=== PATIENT | male | born 1995 ===

== ENCOUNTER → 2021-07-16 | Emergency (ER) | payer SELFPAY ==
[~2021-07-16] VITALS: Ht 172.7 cm; Wt 74.8 kg
[~2021-07-16] MED LIST: HYDROcodone-ACET 5/325MG TAB PO PRN; HYDROcodone-ACET 5/325MG TAB PO SCH; HYDROmorphone HCL 2 MG/ML VL IV ONE; LACTATED RINGER'S 1,000 ML IV ONE; MORPHINE SULFATE INJECTION 2 MG/ML SYRG IV PRN; ONDANSETRON HCL 4 MG/2 ML VIAL IM ONE; ONDANSETRON HCL 4 MG/2 ML VIAL IV ONE; SODIUM CHLORIDE 0.9% 1,000 ML IV ONE; diphenhdrAMINE HCL 50 MG/1 ML VL IV ONE
[2021-07-16 20:21] LABS: Basophils # (auto) 0.1 10 ^3/uL (0-0.2); Basophils % (auto) 0.7 % (0.0-2.0); Eosinophils # (auto) 0 10 ^3/uL (0-0.8); Eosinophils % (auto) 0.1 % (0.0-7.0); Hematocrit 42.6 % (41.0-53.0); Hemoglobin 14.3 g/dL (13.5-17.5); Lymphocytes # (auto) 1.4 10 ^3/uL (0.4-5.4); Mean Corpuscular Hemoglobin 29.3 pg (28.0-32.0); Mean Corpuscular Hgb Conc. 33.7 g/dL (32.0-36.0); Monocytes % (auto) 6.3 % (0.0-12.0); Neutrophils % (auto) 83.9 % (37.0-80.0); Nucleated Red Blood Cells % 0.1 %; Red Cell Distribution Width 13.1 % (11.8-14.3); White Blood Cell 15.5 10^3/uL (4.4-10.8)
[2021-07-16 20:37] LABS: Calcium 9.3 mg/dL (8.5-10.1); Potassium 4.9 mmol/L (3.5-5.1)
[2021-07-16 20:41] LABS: Total Protein 7.6 g/dL (6.4-8.2)
[2021-07-17 18:21] VITALS: BP 117/72
== END | disposition short-term general hospital (02) ==
LOC: ER 14:02 → EDBD 14:02
DX: S59.902A Unspecified injury of left elbow, initial encounter (principal); Z20.822 Contact with and (suspected) exposure to COVID-19; W19.XXXA Unspecified fall, initial encounter; Y93.89 Activity, other specified; Y92.89 Other specified places as the place of occurrence of the external cause; Y99.8 Other external cause status
CPT/HCPCS: 36415; 71045; 73090; 80053; 85025; 87426; 96361; 96372; 96374; 96375; 96376; 99285; J1170; J2405; J7030